=== PATIENT | female | born 1985 | race Caucasian/White ===

== ENCOUNTER → 2023-12-29 09:45 | Emergency (ER) | payer OTHER, SELFPAY ==
[2023-12-29 09:59] VITALS: BP 117/74
--- NOTE | 2023-12-29 10:49 | ED.GENMED ---
History of Present Illness
General
Chief Complaint: Abdominal Pain
Source: patient
Time Seen by Provider: 12/29/23 10:30
History of Present Illness
History of Present Illness:
38yoF with a history of colon cancer presenting with her mother for evaluation of abdominal pain x 3 days. She reports constant LLQ pain for several days. The pain is described a dull throbbing pain that intermittently becomes worse. The pain is an
8-9/10 in severity at its worst. She has been using ibuprofen without relief. She denies any fevers, chills, vomiting, diarrhea, dysuria. She is currently on day 6 of her menstrual period with light spotting. She had a small BM this morning. She
follows with [facility] for her cancer treatment. Last chemotherapy session was yesterday and plan is to start radiation later this month. She is s/p colon and partial liver resection last year. Other previous abdominal surgeries include a
cholecystectomy, appendectomy, , and hepatic pump placement. She had an outpatient CT abdomen last week which showed a small L ovarian cyst which was decreasing in size.
Review of Systems
Review of Systems
Respiratory: Denies trouble breathing
Cardiac: Denies chest pain
ABD/GI: Reports pain; Denies vomiting, diarrhea, bloody stools or black stools
: Denies dysuria
Phy Exam
Physical Exam
Physical Exam:
Abdomen soft, non-distended. No reproducible tenderness noted. Multiple healed surgical scars noted. Hepatic pump palpated in LUQ.
General Physical Exam
General Presentation: well appearing and no apparent distress
Cardiovascular Exam
Cardiovascular Exam: regular rate/rhythm
Pulmonary Exam
Pulmonary Exam: lungs clear and no respiratory distress
Gastrointestinal Exam
Gastrointestinal Exam: non tender, soft, non distended and surgical scar
Course
Orders/Labs/Results
Orders:
Orders
12/29/23 10:46
0.9% Sodium Chloride 1000 ml [Nss] 1,000 ml IV BOLUS
HYDROmorphone [Dilaudid] 0.5 mg IV NOW STA
12/29/23 11:08
CT Abd/pel W Iv And Oral Contr Urgent
Comment:
Reason For Exam: LLQ pain, hx of colon cancer
Iohexol [Omnipaque] See Protocol PO NOW STA
12/29/23 11:13
Complete Blood Count/With Diff Urgent
Comprehensive Metabolic Panel Urgent
HCG, Serum Qualitative Screen Urgent
Comment: ADD ON
Lipase Urgent
12/29/23 11:57
Test Result ONCE
12/29/23 12:02
Add On- LAB Urgent
Tests Added?: serum hcg
12/29/23 14:00
HYDROmorphone [Dilaudid] 0.5 mg IV NOW STA
Abnormal Lab Results
12/29/23
11:13
RBC 3.98 L 10^6/uL
(4.20-5.40)
Hgb 11.6 L g/dL
(12.0-16.0)
Hct 36.8 L %
(37.0-47.0)
MCHC 31.5 L g/dL
(33.0-37.0)
RDW 16.8 H %
(11.5-14.5)
Sodium 134 L mmol/L
(135-145)
Creatinine 0.4 L mg/dL
(0.6-1.0)
AST 49 H U/L
(14-36)
ALT 64 H U/L
(0-35)
Alkaline Phosphatase 129 H U/L
(38-126)
Total Protein 6.2 L g/dl
(6.3-8.2)
12/29/23 11:13
12/29/23 11:13
Vital Signs
Initial and Last Documented VS:
Initial Vital Signs
Temp Pulse Resp BP Pulse Ox
98.1 F 63 18 117/74 99
12/29/23 09:59 12/29/23 09:59 12/29/23 09:59 12/29/23 09:59 12/29/23 09:59
Last Documented Vital Signs
Temp Pulse Resp BP Pulse Ox
98.1 F 63 18 117/74 99
12/29/23 09:59 12/29/23 09:59 12/29/23 09:59 12/29/23 09:59 12/29/23 09:59
MDM/Problems Addressed
Differential Diagnosis Includes:
38yoF here with LLQ pain x 3 days. Hx of colon cancer currently being treated and multiple prior abd surgeries. No urinary symptoms. No fevers. Vitals stable. No signs of peritonitis on abdominal exam. Differential diagnosis includes but is not
limited to: ovarian cyst, kidney stone, diverticulitis, nonspecific abdominal pain, cancer related pain
Initial ED plan: Check abdominal labs, HCG, and CT abdomen. IV Dilaudid for pain.
*Critical Care Note
Total Time (30-74mins, 75-104mins- exclusive of procedures): Not Applicable
Update Note
Update Note:
Labs reveal a mild transaminitis which patient states is chronic. Remainder of labs overall unremarkable including normal white count and renal function. HCG negative. 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
metastases. Patient is aware of retroperitoneal mass and had a CT scan last week at an outside hospital. She is scheduled to start radiation on this mass later this month.
Pain controlled on reassessment. She is stable for discharge. Will provide prescription for oxycodone for breakthrough pain. Advised f/u with PCP and oncologist. ED return precautions discussed. Patient expressed understanding and is agreeable to
plan. Patient discharged in stable condition.
ED Attending Note
-
Portions of this chart may have been created with voice recognition software.� Occasional wrong word or��sound alike� substitutions may have occurred due to the inherent limitations of voice recognition software.
Discharge Plan
Departure
Patient Disposition: Home (Routine Discharge)
Date of Disposition: 12/29/23
Time of Disposition: 14:25
Patient with high blood pressure during this ER visit?: No
Discharge Problem:
Acute left lower quadrant pain
Instructions: Abdominal Pain
Prescriptions:
New
oxycodone 5 mg capsule
5 mg PO Q6H PRN (Reason: Severe pain) Qty: 12 0RF
No Action
ibuprofen 200 mg Tablet
400 mg PO Q6H PRN (Reason: pain )
Referrals:
Colin Simpson MD [Family Provider] -
Activity Restrictions/Additional Instructions:
Take Tylenol and ibuprofen as needed. Take oxycodone only as needed for severe breakthrough pain.
Please follow-up with your family doctor and oncologist. Return to the ER with any worsening symptoms.
Interventions
Interventions:
*Risk Screen - Suicide Last Done: 12/29/23 09:59
*General Assessment Last Done: 12/29/23 09:59
*Neglect/Abuse Screening Last Done: 12/29/23 09:59
ED- Fall Risk Assessment Last Done: 12/29/23 13:00
DD-Jhfrla-[id number] Assessment Last Done: 12/29/23 13:00
Discharge Date and Time
Print Language: TELUGU
[2023-12-29] MEDS: DILAUDID 0.5 MG IV ×2 (11:20→14:26)
[2023-12-29] MEDS: OMNIPAQUE 50 ML PO (11:20)
[2023-12-29] MEDS: NSS 1000 IV (11:22)
[2023-12-29 11:27] LABS: % Basophils 0.4 % (0-2); % Eosinophils 0.7 % (0-6); % Immature Granulocytes 0.1 % (0-0.5); % Lymphocytes 27.5 % (20.5-51.1); % Monocytes 3.2 % (1.7-9.3); % Neutrophils 68.1 % (42.2-75.2); Absolute Eosinophils 0.1 10^3/uL (0-0.7); Absolute Monocytes 0.2 10^3/uL (0.1-0.6); Hematocrit 36.8 % (37.0-47.0); Hemoglobin 11.6 g/dL (12.0-16.0); Mean Corp Hgb Conc. 31.5 g/dL (33.0-37.0); Mean Corpuscular Hgb 29.1 pg (27.0-31.0); Mean Corpuscular Volume 92.5 fL (81.0-99.0); Mean Platelet Volume 9.5 fL (7.4-10.4); Nucleated Red Blood Cells % 0 %; Platelet Count 174 10^3/uL (130-400); Red Blood Cell Count 3.98 10^6/uL (4.20-5.40); Red Cell Dist. Width 16.8 % (11.5-14.5); White Blood Cell Count 7.3 10^3/uL (4.8-10.8)
[2023-12-29 11:51] LABS: ALT (SGPT) 64 U/L (0-35); AST (SGOT) 49 U/L (14-36); Albumin 3.8 g/dl (3.5-5.0); Alkaline Phosphatase 129 U/L (38-126); Blood Urea Nitrogen 14 mg/dl (7-17); Calcium 9.1 mg/dl (8.4-10.2); Carbon Dioxide 28 mmol/L (22-30); Chloride 102 mmol/L (98-107); Glucose 81 mg/dl (70-99); Lipase 52 U/L (23-300); Potassium 3.6 mmol/L (3.5-5.1); Sodium 134 mmol/L (135-145); Total Bilirubin 0.7 mg/dl (0.2-1.3); Total Protein 6.2 g/dl (6.3-8.2); eGFR > 60.00
[2023-12-29 12:52] LABS: HCG, Serum Qualitative Screen Negative
== END | disposition home or self-care (01) ==
LOC: EMR 09:45
PROVIDERS: Physician Assistant; EMERGENCY PHYSICIAN Emergency Medicine; FAMILY PHYSICIAN Family Medicine
DX: R10.32 Left lower quadrant pain (principal); R19.09 Other intra-abdominal and pelvic swelling, mass and lump; C18.9 Malignant neoplasm of colon, unspecified; C79.9 Secondary malignant neoplasm of unspecified site; N83.202 Unspecified ovarian cyst, left side
CPT/HCPCS: 99284; 96361; 96374; 96376; 74177; 80053; 83690; 84703; 85025; Q9967

== ENCOUNTER → 2024-03-17 15:27 | Outpatient (REF) | payer OTHER, SELFPAY | LOC: RAD 15:27 | PROVIDERS: ATTENDING PHYSICIAN Surgery; FAMILY PHYSICIAN Physician Assistant Medical | DX: R10.30 Lower abdominal pain, unspecified (principal) | CPT/HCPCS: 74019 ==

== ENCOUNTER → 2024-04-13 06:20 | Day surgery (SDC) | payer OTHER, SELFPAY | LOC: GI 06:20 | PROVIDERS: ATTENDING PHYSICIAN Surgery | DX: Z08 Encounter for follow-up examination after completed treatment for malignant neoplasm (principal); D49.0 Neoplasm of unspecified behavior of digestive system; C19 Malignant neoplasm of rectosigmoid junction; Z85.048 Personal history of other malignant neoplasm of rectum, rectosigmoid junction, and anus | CPT/HCPCS: 45380; 88305; 88342 ==